=== PATIENT | male | born 1970 | race Caucasian/White ===

== ENCOUNTER 2021-06-06 05:58 | Day surgery (SDC) | payer OTHER ==
[~2021-06-06] VITALS: Ht 182.9 cm; Wt 90.3 kg
[~2021-06-06 05:58] MED LIST: ACET500; ALBU90OI INH; CIPR500 PO; PENVK500; VISBIOME 112.51 EACH PO
--- NOTE | 2021-06-06 06:36 | NUR ---
Ambulatory in Day Surgery. Patient confirms NPO status and agrees with scheduled surgery. Pre-Op teaching done. Pt verbalizes understanding. Patient States Post-Procedure ride home has been arranged.R LUNG WHEEZE NOTED ON INHALE. FERNANDA WITH PT.
--- NOTE | 2021-06-06 09:09 | NUR ---
PT AWAKE, ALERT, CONVERSING WITH STAFF. STEPDOWN STATUS. SIPPING ON COFFEE AT THIS TIME. INCISION COVERED BY GAUZE/TAPE DRESSING. ICE PACK IN PLACE. WAS MEDICATED WITH A TOTAL OF 50 MCG FENT IN PACU FOR SURGICAL AND LOWER BACK PAIN. CURRENT PAIN LEVEL 4/10. PT STATES THIS IS TOLERABLE LEVEL. NO NAUSEA. AWAITING OPEN SPOT IN DAY SURGERY UNIT FOR TRANSFER.
--- NOTE | 2021-06-06 09:45 | NUR ---
Discharge instructions reviewed with patient. Patient verbalizes understanding. Copy given to patient to take home. Dressing to procedure site clean, dry, intact with no visible drainage, swelling, erythema or bruising noted. Patient States Post-Procedure ride home has been arranged. Discharged via wheelchair to private car for ride home. PT SITE WITH TICO MORRELL LOWER GROIN SCANT DRAINAGE NOTED
== END 2021-06-06 22:51 | disposition home or self-care (01) ==
LOC: ORSCMMR 05:58 → ORD 07:30 → ORSCMMR 22:51
PROVIDERS: Surgery
PROC: 0YU60JZ Supplement Left Inguinal Region with Synthetic Substitute, Open Approach (ICD-10-PCS; principal; 2021-06-06 07:30)
DX: K40.90 Unilateral inguinal hernia, without obstruction or gangrene, not specified as recurrent (principal); F17.210 Nicotine dependence, cigarettes, uncomplicated; E78.5 Hyperlipidemia, unspecified; J45.909 Unspecified asthma, uncomplicated; F41.8 Other specified anxiety disorders; Z79.899 Other long term (current) drug therapy
CPT/HCPCS: A9270; C1781; J0690; J1100; J1885; J2250; J2405; J2704; J3010; J7120